=== PATIENT | female | born 1985 | race Caucasian/White ===

== ENCOUNTER 2017-07-22 17:44 | Emergency (ER) | payer SELFPAY ==
[~2017-07-22] VITALS: Ht 157.5 cm; Wt 108.0 kg
[2017-07-22 18:04] VITALS: BP 134/81; Ht 157.5 cm; Wt 108.0 kg
== END 2017-07-22 22:50 | disposition left against medical advice (07) ==
LOC: ED 17:44
DX: Z53.21 Procedure and treatment not carried out due to patient leaving prior to being seen by health care provider (principal)